=== PATIENT | female | born 1995 | race Hispanic/Latino ===

== ENCOUNTER 2023-08-13 22:42 | Outpatient (CLI) | payer OTHER, SELFPAY ==
[~2023-08-13] VITALS: Ht 170.2 cm; Wt 104.5 kg
[2023-08-13 23:01] VITALS: BP 130/71
[2023-08-13] MEDS ORDERED: PRENTAB9 PO (23:07)
[2023-08-13] MEDS ORDERED: HOME MED LIST COMPLETE! XX SCH (23:10)
[2023-08-13 23:33] LABS: APPEARANCE, URINE CLEAR (CLEAR); BACTERIA, URINE AUTO NEGATIVE (NEGATIVE); BILIRUBIN, URINE AUTO NEGATIVE (NEGATIVE); BLOOD, URINE BLOOD NEGATIVE (NEGATIVE); COLOR, URINE STRAW (YELLOW); GLUCOSE, URINE (UA) AUTO NEGATIVE (NEGATIVE); KETONE, URINE AUTO NEGATIVE (NEGATIVE); LEUKOCYTE ESTERASE, URINE AUTO NEGATIVE (NEGATIVE); NITRITE, URINE AUTO NEGATIVE (NEGATIVE); PROTEIN, URINE AUTO NEGATIVE (NEGATIVE); RBC, URINE AUTO 0 /HPF (0-3); SPECIFIC GRAVITY URINE AUTO 1.005 (1.002-1.035); SQUAMOUS EPITHELIAL CELL UR AU 1 /HPF (0-6); UROBILINOGEN, URINE AUTO 0.2 mg/dL (0.0-2.0); WBC, URINE AUTO 0 /HPF (0-3)
== END 2023-08-13 23:49 | disposition home or self-care (01) ==
LOC: M LDO 22:42
PROVIDERS: ATTEND Advanced Practice Midwife
DX: O26.893 Other specified pregnancy related conditions, third trimester (principal); R25.2 Cramp and spasm; Z3A.32 32 weeks gestation of pregnancy
CPT/HCPCS: 59025; 81001; 87086; G0463

== ENCOUNTER → 2023-08-21 | Outpatient (REF) ==
[~2023-08-21] MED LIST: PRENTAB9 PO
[2023-08-21 18:24] LABS: COLLAGEN EPINEPHRINE 135 SECONDS (74-162)
== END ==
LOC: M CATH 17:10
PROVIDERS: ATTEND Obstetrics & Gynecology Obstetrics
DX: D69.1 Qualitative platelet defects (principal)

== ENCOUNTER → 2024-12-13 | Outpatient (CLI) | payer OTHER | LOC: M WUC 10:38 | PROVIDERS: ATTEND Nurse Practitioner Family | DX: M25.572 Pain in left ankle and joints of left foot (principal) ==